=== PATIENT | female | born 1935 | race Caucasian/White ===

== ENCOUNTER 2019-12-08 20:56 | Emergency (ER) | payer MEDICARE ==
[2019-12-08 21:09] VITALS: TEMP 97
[2019-12-08] MEDS ORDERED: DIPH,PERTUS(ACELL)TETVAC-LF 0.5 ML VIAL IM ONE (21:29)
--- NOTE | 2019-12-08 21:39 | ED ---
Fall HPI - General Chief Complaint: Fall Stated Complaint: Fall Time Seen by Provider: 12/08/19 21:04 Source: patient Mode of arrival: EMS - History of Present Illness Initial Comments: This patient is an 83-year-old woman with history of falls due to severe rheumatoid arthritis, who states that she was attempting to go from her bed to a bedside chair and she slipped sliding to the ground. This occurred around 1 PM and she was not able to get up for a number of hours. She finally was able to activate her fall alarm. The patient is complaining of pain in the area of the right knee. She denies other injury. No loss of consciousness. She states she is otherwise feeling well and had seen her physician earlier in the week. MD Complaint: fall Onset/Timin -: hour(s) Fall From: out of bed Fall Witnessed: no Place Fall Occurred: home Loss of Consciousness: none Prolonged Down Time?: yes, hour(s) (8) Symptoms Prior to Fall: none Location - Extremities: Right: Leg Severity: moderate Quality: aching Context: tripped/slipped Associated Symptoms: denies - Related Data Allergies Allergy/AdvReac Type Severity Reaction Status Date / Time hydromorphone [From Dilaudid] Allergy Unknown Verified 12/08/19 21:09 Review of Systems ROS Statement: Those systems with pertinent positive or pertinent negative responses have been documented in the HPI. ROS Other: All systems not noted in ROS Statement are negative. Constitutional: Reports: weakness (Chronic). Denies: fever, chills Respiratory: Denies: cough, dyspnea Cardiovascular: Denies: chest pain, palpitations, orthopnea, syncope Gastrointestinal: Denies: abdominal pain, vomiting, diarrhea Genitourinary: Denies: dysuria, frequency Musculoskeletal: Reports: as per HPI, arthralgia (Right knee). Denies: back pain Skin: Denies: rash Neurological: Denies: headache, weakness, numbness Past Medical History Past Medical History: Hypertension, Rheumatoid Arthritis (RA) History of Any Multi-Drug Resistant Organisms: None Reported Additional Past Surgical History / Comment(s): carotid Past Psychological History: Anxiety Smoking Status: Never smoker Past Alcohol Use History: None Reported Past Drug Use History: None Reported General Exam Limitations: physical limitation General appearance: alert, in no apparent distress, cachectic Head exam: Present: atraumatic, normocephalic Eye exam: Present: normal appearance. Absent: scleral icterus, conjunctival injection ENT exam: Present: mucous membranes dry Neck exam: Present: normal inspection Respiratory exam: Present: normal lung sounds bilaterally. Absent: respiratory distress, wheezes, rales, rhonchi, stridor Cardiovascular Exam: Present: regular rate, normal rhythm, normal heart sounds. Absent: systolic murmur, diastolic murmur, rubs, gallop GI/Abdominal exam: Present: soft. Absent: distended, tenderness, guarding, rebound, rigid, mass Extremities exam: Present: tenderness (Right leg), normal capillary refill, other (Severe chronic rheumatoid degenerative joint changes). Absent: pedal edema Back exam: Present: normal inspection. Absent: CVA tenderness (R), CVA tenderness (L), paraspinal tenderness, vertebral tenderness Neurological exam: Present: alert, oriented X3. Absent: motor sensory deficit Skin exam: Present: warm, dry, intact, normal color. Absent: rash Course Vital Signs 12/08/19 21:05 Temperature 97.0 F L Pulse Rate 48 L Respiratory 18 Rate Blood Pressure 128/76 O2 Sat by Pulse 96 Oximetry Medical Decision Making - Lab Data Result diagrams: 12/08/19 22:00 12/08/19 22:00 Lab Results 12/08/19 12/08/19 12/08/19 Range/Units 22:00 22:00 22:00 WBC 8.5 (3.8-10.6) k/uL RBC 4.71 (3.80-5.40) m/uL Hgb 12.5 (11.4-16.0) gm/dL Hct 39.2 (34.0-46.0) % MCV 83.1 (80.0-100.0) fL MCH 26.6 (25.0-35.0) pg MCHC 31.9 (31.0-37.0) g/dL RDW 14.1 (11.5-15.5) % Plt Count 360 (150-450) k/uL Neutrophils % 91 % Lymphocytes % 6 % Monocytes % 3 % Eosinophils % 0 % Basophils % 0 % Neutrophils # 7.7 (1.3-7.7) k/uL Lymphocytes # 0.5 L (1.0-4.8) k/uL Monocytes # 0.2 (0-1.0) k/uL Eosinophils # 0.0 (0-0.7) k/uL Basophils # 0.0 (0-0.2) k/uL Sodium 133 L (137-145) mmol/L Potassium 4.6 (3.5-5.1) mmol/L Chloride 103 (98-107) mmol/L Carbon Dioxide 23 (22-30) mmol/L Anion Gap 7 mmol/L BUN 29 H (7-17) mg/dL Creatinine 0.52 (0.52-1.04) mg/dL Est GFR (CKD-EPI)AfAm >90 (>60 ml/min/1.73 sqM) Est GFR (CKD-EPI)NonAf 88 (>60 ml/min/1.73 sqM) Glucose 146 H (74-99) mg/dL Calcium 8.9 (8.4-10.2) mg/dL CK-MB (CK-2) 3.2 H (0.0-2.4) ng/mL Disposition Clinical Impression: Fall, Contusion Disposition: HOME SELF-CARE Condition: Fair Instructions (If sedation given, give patient instructions): Fall Prevention for Older Adults (ED) Is patient prescribed a controlled substance at d/c from ED?: No Referrals: Nick France MD [Primary Care Provider] - 1-2 days
[2019-12-08 22:46] LABS: Basophils % (A) 0 %; Eosinophils % (A) 0 %; HCT 39.2 % (34.0-46.0); HGB 12.5 gm/dL (11.4-16.0); Lymphocytes # (A) 0.5 k/uL (1.0-4.8); Lymphocytes % (A) 6 %; MCH 26.6 pg (25.0-35.0); MCHC 31.9 g/dL (31.0-37.0); MCV 83.1 fL (80.0-100.0); Mean Platelet Volume 6.8; Monocytes # (A) 0.2 k/uL (0-1.0); Monocytes % (A) 3 %; Neutrophils # (A) 7.7 k/uL (1.3-7.7); Neutrophils % (A) 91 %; Platelet Count 360 k/uL (150-450); RBC 4.71 m/uL (3.80-5.40); RDW 14.1 % (11.5-15.5); WBC 8.5 k/uL (3.8-10.6)
[2019-12-08 22:57] LABS: African American GFR (CKD) >90 (>60 ml/min/1.73 sqM); Anion Gap 7 mmol/L; Blood Urea Nitrogen 29 mg/dL (7-17); Calcium 8.9 mg/dL (8.4-10.2); Carbon Dioxide 23 mmol/L (22-30); Chloride 103 mmol/L (98-107); Glucose 146 mg/dL (74-99); Non-African American GFR(CKD) 88 (>60 ml/min/1.73 sqM); Potassium 4.6 mmol/L (3.5-5.1); Sodium 133 mmol/L (137-145)
--- NOTE | 2019-12-08 23:01 | XR ---
EXAMINATION TYPE: XR femur RT DATE OF EXAM: 12/08/2019 COMPARISON: NONE HISTORY: Right leg pain TECHNIQUE: 4 views FINDINGS: There is moderate narrowing of the hip joint space. Knee joint is intact. I see no fracture nor dislocation. There is spurring on the superior patella. There is spurring on the femoral head an d the acetabulum. 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 No fracture seen.
--- NOTE | 2019-12-08 23:02 | XR ---
EXAMINATION TYPE: XR tibia fibula RT DATE OF EXAM: 12/08/2019 COMPARISON: NONE HISTORY: Leg pain TECHNIQUE: 4 views FINDINGS: I see no fracture nor dislocation. Joint spaces are normal. Knee joint and ankle joint appe ar intact. IMPRESSION: Negative right tibia and fibula exam. No fracture seen. Mild osteopenia.
[2019-12-09] MEDS ORDERED: TOPICAL SKIN ADHESIVE 1 EACH AMP TOPICAL ONE (01:14)
[2019-12-09 01:46] VITALS: BP 130/74; PULSE 74; RESP 19
== END 2019-12-09 01:53 | disposition home or self-care (01) ==
LOC: EC 20:56
DX: S80.01XA Contusion of right knee, initial encounter (principal); M06.9 Rheumatoid arthritis, unspecified; R64 Cachexia; Z88.5 Allergy status to narcotic agent; Z68.1 Body mass index [BMI] 19.9 or less, adult; Z91.81 History of falling; Z23 Encounter for immunization; W06.XXXA Fall from bed, initial encounter; Y93.89 Activity, other specified; Y92.009 Unspecified place in unspecified non-institutional (private) residence as the place of occurrence of the external cause
CPT/HCPCS: 36415; 80048; 82553; 85025; 90471; 90715; 99284